=== PATIENT | male | born 1995 | race Caucasian/White ===

== ENCOUNTER → 2018-12-26 | Outpatient (REF) | payer BC, OTHER ==
[2018-12-26 13:38] LABS: HEMATOCRIT 43.4 % (42.0-52.0)
[2018-12-26 13:43] LABS: FERRITIN 405 NG/ML (26-388); IRON (FE) 113 UG/DL (65-175); PERCENT SATURATION 32.6 % (19.7-50.0); TOTAL IRON BINDING CAPACITY 347 UG/DL (250-450)
[2018-12-26 13:59] LABS: HEPATITIS B SURFACE ANTIGEN NEGATIVE (NEGATIVE)
[2018-12-26 14:27] LABS: HEPATITIS C VIRUS ABY INDEX 0.1 INDEX (<0.8)
[2018-12-27 10:35] LABS: HEPATITIS B CORE ANTIBODY IGM NEGATIVE (NEGATIVE)
[2018-12-27 10:37] LABS: HEPATITIS A ANTIBODY IGM NEGATIVE (NEGATIVE)
== END ==
LOC: M LAB REF 13:13
PROVIDERS: ATTEND Nurse Practitioner Adult Health
DX: R74.8 Abnormal levels of other serum enzymes (principal)

== ENCOUNTER → 2022-08-09 | Outpatient (REF) | payer OTHER | LOC: M LAB REF 16:20 | PROVIDERS: ATTEND Physician Assistant Medical | DX: R21 Rash and other nonspecific skin eruption (principal) ==

== ENCOUNTER → 2022-08-18 | Outpatient (REF) | payer OTHER | LOC: M LAB REF 16:11 | PROVIDERS: ATTEND Physician Assistant Medical | DX: R31.9 Hematuria, unspecified (principal); L95.8 Other vasculitis limited to the skin ==

== ENCOUNTER → 2022-09-26 | Outpatient (REF) | payer OTHER ==
[2022-09-26 17:02] LABS: C REACTIVE PROTEIN QUANTITATIV 0.5 MG/DL (<1.0)
[2022-09-26 17:04] LABS: RHEUMATOID FACTOR QUANT 5.7 IU/ML (<14)
[2022-09-26 17:05] LABS: URIC ACID 8.5 MG/DL (3.7-9.2)
[2022-09-28 23:07] LABS: ANA (HEP2) Negative (.); CYCLIC CITRULLINATED PEPTIDE 4 units (0-19)
== END ==
LOC: M LAB REF 16:15
PROVIDERS: ATTEND Physician Assistant Medical
DX: R21 Rash and other nonspecific skin eruption (principal); L95.9 Vasculitis limited to the skin, unspecified

== ENCOUNTER → 2022-11-07 | Outpatient (CLI) | payer OTHER, BC ==
[2022-11-07 13:26] LABS: APPEARANCE, URINE HAZY (CLEAR); BACTERIA, URINE AUTO NEGATIVE (NEGATIVE); BASO # 0.1 10^3/uL (0.0-0.2); BILIRUBIN, URINE AUTO NEGATIVE (NEGATIVE); BLOOD, URINE BLOOD 3+ (NEGATIVE); COLOR, URINE YELLOW (YELLOW); EOS # 0.2 10^3/uL (0.0-0.5); EOS % 3.8 % (0.0-3.0); GLUCOSE, URINE (UA) AUTO NEGATIVE (NEGATIVE); HEMATOCRIT 42.8 % (42.0-52.0); HEMOGLOBIN 14.8 g/dl (13.5-17.5); KETONE, URINE AUTO NEGATIVE (NEGATIVE); LEUKOCYTE ESTERASE, URINE AUTO NEGATIVE (NEGATIVE); LYMPH # 1.4 10^3/uL (1.5-5.0); LYMPH % 27.7 % (24.0-44.0); MEAN CORPUSCULAR HEMOGLOBIN 34.1 pg (27.0-33.0); MEAN CORPUSCULAR HGB CONC 34.6 g/dl (32.0-36.5); MEAN CORPUSCULAR VOLUME 98.6 fl (80.0-96.0); MONO # 0.4 10^3/uL (0.0-0.8); MONO % 8.5 % (2.0-8.0); MUCUS, URINE SMALL (NEGATIVE); NEUTROPHILS # 2.9 10^3/uL (1.5-8.5); NEUTROPHILS % 58.6 % (36.0-66.0); NITRITE, URINE AUTO NEGATIVE (NEGATIVE); PLATELET COUNT, AUTOMATED 249 10^3/uL (150-450); PROTEIN, URINE AUTO 2+ mg/dL (NEGATIVE); RBC, URINE AUTO 101 /HPF (0-3); RED BLOOD COUNT 4.34 10^6/uL (4.30-6.10); SPECIFIC GRAVITY URINE AUTO 1.018 (1.002-1.035); SQUAMOUS EPITHELIAL CELL UR AU 0 /HPF (0-6); UROBILINOGEN, URINE AUTO 0.2 mg/dL (0.0-2.0); WBC, URINE AUTO 8 /HPF (0-3)
[2022-11-07 13:52] LABS: C REACTIVE PROTEIN QUANTITATIV < 0.40 MG/DL (<1.0); IMMUNOGLOBULIN A 217.3 MG/DL (40-350)
[2022-11-07 13:53] LABS: ALBUMIN 3.8 G/DL (3.2-5.2); ALKALINE PHOSPHATASE 83 U/L (46-116); ALT/SGPT 13 U/L (7.0-40); ANTI-STREPTOLYSIN O QUANT 350.9 IU/ML (<195); AST/SGOT < 8 U/L (<34); BILIRUBIN,TOTAL 0.4 MG/DL (0.3-1.2); BLOOD UREA NITROGEN 22 MG/DL (9-23); CALCIUM LEVEL 10.3 MG/DL (8.5-10.1); CARBON DIOXIDE LEVEL 28 MMOL/L (20-31); CHLORIDE LEVEL 106 MMOL/L (98-107); COMPLEMENT C3 156.8 MG/DL (82.0-160.0); COMPLEMENT C4 35.2 MG/DL (12-36); CREATININE FOR GFR 1.38 MG/DL (0.70-1.30); GLOMERULAR FILTRATION RATE > 60.0 (>60); GLUCOSE, FASTING 90 MG/DL (60-100); POTASSIUM SERUM 4.5 MMOL/L (3.5-5.1); SODIUM LEVEL 141 MMOL/L (136-145); TOTAL PROTEIN 6.7 G/DL (5.7-8.2)
[2022-11-07 14:02] LABS: INR 0.84; PROTHROMBIN TIME 11.7 SECONDS (12.5-14.5)
[2022-11-07 14:03] LABS: PARTIAL THROMBOPLASTIN TIME 32.9 SECONDS (24.8-34.2)
[2022-11-07 14:20] LABS: ERYTHROCYTE SEDIMENTATION RATE 10 mm/hr (0-15)
== END ==
LOC: M PLALAB 11:48
PROVIDERS: ATTEND Internal Medicine Infectious Disease
DX: M31.0 Hypersensitivity angiitis (principal); R31.0 Gross hematuria

== ENCOUNTER 2023-05-11 16:26 | Observation (INO) | payer BC, OTHER ==
[~2023-05-11] VITALS: Ht 182.9 cm; Wt 115.2 kg
[2023-05-11 19:27] LABS: BASO % 0.3 % (0.0-1.0); EOS % 0.3 % (0.0-3.0); HEMATOCRIT 43.3 % (42.0-52.0); HEMOGLOBIN 15.7 g/dl (13.5-17.5); LYMPH # 0.6 10^3/uL (1.5-5.0); LYMPH % 8.8 % (24.0-44.0); MEAN CORPUSCULAR HEMOGLOBIN 33.6 pg (27.0-33.0); MEAN CORPUSCULAR HGB CONC 36.3 g/dl (32.0-36.5); MEAN CORPUSCULAR VOLUME 92.7 fl (80.0-96.0); MONO # 0.6 10^3/uL (0.0-0.8); MONO % 8.8 % (2.0-8.0); NEUTROPHILS # 5.7 10^3/uL (1.5-8.5); NEUTROPHILS % 81.5 % (36.0-66.0); PLATELET COUNT, AUTOMATED 180 10^3/uL (150-450); RED BLOOD COUNT 4.67 10^6/uL (4.30-6.10)
[2023-05-11 19:33] LABS: RSV AMPLIFICATION NEGATIVE (NEGATIVE)
[2023-05-11 19:54] LABS: LIPASE 35 U/L (12-53)
[2023-05-11 19:56] LABS: ALBUMIN 3.9 G/DL (3.2-5.2); ALKALINE PHOSPHATASE 60 U/L (46-116); ALT/SGPT 22 U/L (7.0-40); AST/SGOT 18 U/L (<34); BILIRUBIN,DIRECT 0.3 MG/DL (<0.4); BILIRUBIN,TOTAL 0.8 MG/DL (0.3-1.2); TOTAL PROTEIN 6.9 G/DL (5.7-8.2)
[2023-05-11 20:23] LABS: ERYTHROCYTE SEDIMENTATION RATE 15 mm/hr (0-15)
[2023-05-11 20:29] LABS: CHLAMYDIA DNA AMPLIFICATION NEGATIVE (NEGATIVE); GC DNA AMPLIFICATION NEGATIVE (NEGATIVE)
[2023-05-11 20:53] LABS: INR 1.09; PROTHROMBIN TIME 13.8 SECONDS (12.5-14.5)
[2023-05-11] MEDS ORDERED: NS 1,000 ML IV ONE ×2 (22:20→22:25)
[2023-05-11] MEDS ORDERED: HOME MED LIST COMPLETE! XX SCH (23:00)
[2023-05-11] MEDS ORDERED: ACETAMINOPHEN 325 MG TAB PO ONE (23:55)
[2023-05-12 07:00] LABS: HIV 1&2 SCREEN NEGATIVE (NEGATIVE)
[2023-05-12] MEDS ORDERED: SODIUM CHLORIDE 0.9% 1000ML IV ONE (12:40)
[2023-05-12 12:59] LABS: ERYTHROCYTE SEDIMENTATION RATE 8 mm/hr (0-15)
[2023-05-12 13:09] LABS: COMPLEMENT C3 136.8 MG/DL (82.0-160.0); COMPLEMENT C4 33.1 MG/DL (12-36); IMMUNOGLOBULIN A 202.9 MG/DL (40-350); IMMUNOGLOBULIN G 672 MG/DL (650-1600)
[2023-05-12 13:18] LABS: MONO SCRN NEGATIVE (NEGATIVE)
[2023-05-12 13:44] LABS: BASO % 0.2 % (0.0-1.0); EOS # 0.1 10^3/uL (0.0-0.5); EOS % 1.2 % (0.0-3.0); HEMATOCRIT 37.3 % (42.0-52.0); LYMPH # 0.7 10^3/uL (1.5-5.0); LYMPH % 17.8 % (24.0-44.0); MEAN CORPUSCULAR HEMOGLOBIN 33.8 pg (27.0-33.0); MEAN CORPUSCULAR HGB CONC 35.9 g/dl (32.0-36.5); MONO # 0.8 10^3/uL (0.0-0.8); MONO % 18.6 % (2.0-8.0); NEUTROPHILS # 2.6 10^3/uL (1.5-8.5); PLATELET COUNT, AUTOMATED 159 10^3/uL (150-450); RED BLOOD COUNT 3.97 10^6/uL (4.30-6.10); WHITE BLOOD COUNT 4.2 10^3/uL (4.0-10.0)
[2023-05-12 13:52] LABS: HEMOGLOBIN 13.4 g/dl (13.5-17.5)
[2023-05-12] MEDS ORDERED: methylPREDNISolone 125MG 2ML VIAL IV ONE (15:00)
[2023-05-12 15:15] VITALS: BP 116/67; TEMP 96.9; O2SAT 99
[2023-05-12] MEDS: NS 1,000 ML IV SCH (15:52)
[2023-05-12] MEDS: ACETAMINOPHEN TAB 650MG DOSE (2X325MG) PO PRN (16:11)
[2023-05-12] MEDS: LOPERAMIDE 2 MG CAPLET PO PRN (20:44)
[2023-05-12 22:02] VITALS: BP 152/78; TEMP 96.8; O2SAT 99
[2023-05-13] MEDS: NS 1,000 ML IV SCH ×3 (01:02→21:01)
[2023-05-13 05:52] VITALS: BP 148/78; TEMP 97.7; O2SAT 100
[2023-05-13] MEDS: LOPERAMIDE 2 MG CAPLET PO PRN ×2 (06:35→09:26)
[2023-05-13 06:36] LABS: BASO % 0.4 % (0.0-1.0); EOS % 0.2 % (0.0-3.0); HEMATOCRIT 34.4 % (42.0-52.0); HEMOGLOBIN 12.5 g/dl (13.5-17.5); LYMPH # 0.8 10^3/uL (1.5-5.0); LYMPH % 16.4 % (24.0-44.0); MEAN CORPUSCULAR HEMOGLOBIN 34.2 pg (27.0-33.0); MEAN CORPUSCULAR HGB CONC 36.3 g/dl (32.0-36.5); MONO # 0.9 10^3/uL (0.0-0.8); MONO % 18.6 % (2.0-8.0); NEUTROPHILS # 3.3 10^3/uL (1.5-8.5); NEUTROPHILS % 64.2 % (36.0-66.0); PLATELET COUNT, AUTOMATED 156 10^3/uL (150-450); RED BLOOD COUNT 3.66 10^6/uL (4.30-6.10); WHITE BLOOD COUNT 5.1 10^3/uL (4.0-10.0)
[2023-05-13 07:01] LABS: BLOOD UREA NITROGEN 20 MG/DL (9-23); CALCIUM LEVEL 8.7 MG/DL (8.5-10.1); CARBON DIOXIDE LEVEL 25 MMOL/L (20-31); CHLORIDE LEVEL 109 MMOL/L (98-107); CREATININE FOR GFR 1.47 MG/DL (0.70-1.30); GLOMERULAR FILTRATION RATE > 60.0 (>60); GLUCOSE, FASTING 102 MG/DL (60-100); POTASSIUM SERUM 4.1 MMOL/L (3.5-5.1); SODIUM LEVEL 141 MMOL/L (136-145)
[2023-05-13] MEDS: ACETAMINOPHEN TAB 650MG DOSE (2X325MG) PO PRN (09:26)
[2023-05-13] MEDS: methylPREDNISolone 125MG 2ML VIAL IV SCH (15:20)
[2023-05-13 21:29] VITALS: BP 152/79; TEMP 97.2; O2SAT 96
[2023-05-14 06:15] VITALS: BP 137/65; TEMP 97.5; O2SAT 97
[2023-05-14 06:18] LABS: BASO % 0.4 % (0.0-1.0); EOS % 0.6 % (0.0-3.0); HEMATOCRIT 35.1 % (42.0-52.0); HEMOGLOBIN 12.2 g/dl (13.5-17.5); LYMPH # 1.2 10^3/uL (1.5-5.0); LYMPH % 21.7 % (24.0-44.0); MEAN CORPUSCULAR HEMOGLOBIN 33.2 pg (27.0-33.0); MEAN CORPUSCULAR HGB CONC 34.8 g/dl (32.0-36.5); MEAN CORPUSCULAR VOLUME 95.4 fl (80.0-96.0); MONO # 0.6 10^3/uL (0.0-0.8); MONO % 10.3 % (2.0-8.0); NEUTROPHILS # 3.6 10^3/uL (1.5-8.5); NEUTROPHILS % 66.4 % (36.0-66.0); PLATELET COUNT, AUTOMATED 178 10^3/uL (150-450); RED BLOOD COUNT 3.68 10^6/uL (4.30-6.10); WHITE BLOOD COUNT 5.4 10^3/uL (4.0-10.0)
[2023-05-14] MEDS: NS 1,000 ML IV SCH (06:39)
[2023-05-14 06:56] LABS: BLOOD UREA NITROGEN 17 MG/DL (9-23); CALCIUM LEVEL 8.6 MG/DL (8.5-10.1); CARBON DIOXIDE LEVEL 25 MMOL/L (20-31); CHLORIDE LEVEL 111 MMOL/L (98-107); CREATININE FOR GFR 1.27 MG/DL (0.70-1.30); GLOMERULAR FILTRATION RATE > 60.0 (>60); GLUCOSE, FASTING 100 MG/DL (60-100); POTASSIUM SERUM 4.2 MMOL/L (3.5-5.1); SODIUM LEVEL 142 MMOL/L (136-145)
[2023-05-14 14:00] VITALS: BP 122/70; TEMP 96.8; O2SAT 98
[2023-05-14] MEDS: methylPREDNISolone 125MG 2ML VIAL IV SCH (16:34)
[2023-05-14 21:03] VITALS: BP 140/83; TEMP 97.7; O2SAT 99
[2023-05-15 04:00] VITALS: BP_DIAS 64
[2023-05-15 06:23] LABS: BASO % 0.3 % (0.0-1.0); EOS % 0.5 % (0.0-3.0); HEMATOCRIT 34.1 % (42.0-52.0); HEMOGLOBIN 12.2 g/dl (13.5-17.5); LYMPH # 1.4 10^3/uL (1.5-5.0); LYMPH % 24.2 % (24.0-44.0); MEAN CORPUSCULAR HEMOGLOBIN 33.6 pg (27.0-33.0); MEAN CORPUSCULAR HGB CONC 35.8 g/dl (32.0-36.5); MEAN CORPUSCULAR VOLUME 93.9 fl (80.0-96.0); MONO # 0.5 10^3/uL (0.0-0.8); MONO % 8.4 % (2.0-8.0); NEUTROPHILS % 66.4 % (36.0-66.0); PLATELET COUNT, AUTOMATED 206 10^3/uL (150-450); RED BLOOD COUNT 3.63 10^6/uL (4.30-6.10)
[2023-05-15 06:47] VITALS: BP_SYST 118; TEMP 97.5; O2SAT 100
[2023-05-15 06:52] LABS: BLOOD UREA NITROGEN 16 MG/DL (9-23); CALCIUM LEVEL 8.6 MG/DL (8.5-10.1); CARBON DIOXIDE LEVEL 24 MMOL/L (20-31); CHLORIDE LEVEL 110 MMOL/L (98-107); CREATININE FOR GFR 1.19 MG/DL (0.70-1.30); GLOMERULAR FILTRATION RATE > 60.0 (>60); GLUCOSE, FASTING 100 MG/DL (60-100); POTASSIUM SERUM 3.9 MMOL/L (3.5-5.1); SODIUM LEVEL 141 MMOL/L (136-145)
[2023-05-15] MEDS ORDERED: predniSONE 20 MG TAB PO SCH (09:00)
[2023-05-15] MEDS ORDERED: LIDOCAINE 1% MDV 20ML VIAL As Ordered ONE (12:59)
[2023-05-15] MEDS ORDERED: fentaNYL 100 MCG/2 ML INJECTION As Ordered ONE (13:11)
[2023-05-15] MEDS ORDERED: PRED20TA PO (13:58)
[2023-05-15 14:39] VITALS: BP 147/82; TEMP 98.2; O2SAT 99
[2023-05-15 15:00] VITALS: BP 147/73; TEMP 97.9; O2SAT 100
[2023-05-21 20:08] LABS: ANTI DS-DNA AB Negative (Negative); ANTI SMITH(Sm) AB <20 Units (<20)
== END 2023-05-15 16:10 | disposition home or self-care (01) ==
LOC: M ED 16:26 → M ED INP 23:41 → M MS5PR 05-12 15:14
PROVIDERS: ADMIT Internal Medicine; ATTEND General Practice
DX: R80.9 Proteinuria, unspecified (principal); R31.0 Gross hematuria; D69.0 Allergic purpura; K52.9 Noninfective gastroenteritis and colitis, unspecified; N17.0 Acute kidney failure with tubular necrosis; R50.9 Fever, unspecified; I10 Essential (primary) hypertension
CPT/HCPCS: 36415; 50200; 71046; 71250; 74176; 76775; 76942; 80047; 80048; 80076; 81001; 82784; 83605; 83690; 84145; 85025; 85610; 85652; 86038; 86063; 86140; 86160; 86161; 86162; 86225; 86235; 86308; 87040; 87086; 87389; 87486; 87507; 87581; 87631; 87633; 87661; 87798; 87810; 87850; 88300; 96361; 96374; 96375; 96376; 99284; J2930; J3010; J7512

== ENCOUNTER → 2023-05-11 | Outpatient (REF) | payer BC, OTHER ==
[~2023-05-11] MED LIST: PRED20TA PO
== END ==
LOC: M LAB REF 16:56
PROVIDERS: ATTEND Physician Assistant Medical
DX: R50.9 Fever, unspecified (principal); R31.9 Hematuria, unspecified

== ENCOUNTER → 2023-07-06 | Outpatient (REF) | payer OTHER | LOC: M LAB REF 17:12 | PROVIDERS: ATTEND Internal Medicine Nephrology | DX: R80.9 Proteinuria, unspecified (principal) ==

== ENCOUNTER → 2023-07-10 | Outpatient (REF) | payer OTHER ==
[2023-07-10 19:07] LABS: CREATININE,RANDOM URINE 223.4 MG/DL
[2023-07-10 19:09] LABS: TOTAL PROTEIN,RANDOM URINE 176.8 MG/DL (0.0-14.0)
== END ==
LOC: M LAB REF 14:12
PROVIDERS: ATTEND Nurse Practitioner Family
DX: N04.8 Nephrotic syndrome with other morphologic changes (principal)

== ENCOUNTER → 2023-08-07 | Outpatient (REF) | payer OTHER ==
[2023-08-07 18:56] LABS: TOTAL PROTEIN,RANDOM URINE 84.1 MG/DL (0.0-14.0)
[2023-08-07 19:00] LABS: CREATININE,RANDOM URINE 77.2 MG/DL
== END ==
LOC: M LAB REF 17:07
PROVIDERS: ATTEND Nurse Practitioner Family
DX: N04.8 Nephrotic syndrome with other morphologic changes (principal)

== ENCOUNTER → 2023-09-04 | Outpatient (REF) | payer OTHER ==
[2023-09-04 18:45] LABS: CREATININE,RANDOM URINE 186.4 MG/DL
== END ==
LOC: M LAB REF 16:51
PROVIDERS: ATTEND Nurse Practitioner Family
DX: N04.8 Nephrotic syndrome with other morphologic changes (principal)

== ENCOUNTER → 2023-10-04 | Outpatient (REF) | payer OTHER ==
[2023-10-04 16:15] LABS: TOTAL PROTEIN,RANDOM URINE 83.1 MG/DL (0.0-14.0)
[2023-10-04 16:20] LABS: CREATININE,RANDOM URINE 171.4 MG/DL
== END ==
LOC: M LAB REF 14:57
PROVIDERS: ATTEND Nurse Practitioner Family
DX: R80.9 Proteinuria, unspecified (principal)

== ENCOUNTER → 2024-01-07 | Outpatient (REF) | payer OTHER ==
[2024-01-07 17:52] LABS: TOTAL PROTEIN,RANDOM URINE 51.9 MG/DL (0.0-14.0)
[2024-01-07 17:57] LABS: CREATININE,RANDOM URINE 113.9 MG/DL
== END ==
LOC: M LAB REF 16:57
PROVIDERS: ATTEND Nurse Practitioner Family
DX: R80.9 Proteinuria, unspecified (principal)

== ENCOUNTER → 2025-04-01 | Outpatient (REF) | payer BC, OTHER ==
[2025-04-01 18:19] LABS: TOTAL PROTEIN,RANDOM URINE 50.4 MG/DL (0.0-14.0)
== END ==
LOC: M LAB REF 17:04
PROVIDERS: ATTEND Internal Medicine Nephrology
DX: R80.9 Proteinuria, unspecified (principal)